=== PATIENT | female | born 1985 | race Caucasian/White ===

== ENCOUNTER 2016-08-03 19:17 | Emergency (ER) | payer MEDICARE, MEDICAID ==
[2016-08-03 21:18] VITALS: BP 110/69
[2016-08-03] MEDS ORDERED: Cephalexin SUSP* 250 MG/5 ML ORAL.SUSP 100 ML BTL PO ONE ×3 (21:47→21:54)
--- NOTE | 2016-08-03 21:54 | UC ---
Skin Complaint HPI - HPI Summary HPI Summary: INFECTED FOLLICLES ON LEFT BUTTOCK FOR DAYS. - History of Current Complaint Chief Complaint: UCSkin Time Seen by Provider: 08/03/16 21:36 Stated Complaint: SKIN COMPLAINT Hx Last Menstrual Period: 07/22/16 Onset/Duration: Lasting Days Location: Other - LEFT BUTTOCK Associated Signs & Symptoms: Positive: Rash. Negative: Fever - Allergy/Home Medications Allergies/Adverse Reactions: Allergies Allergy/AdvReac Type Severity Reaction Status Date / Time No Known Allergies Allergy Verified 08/03/16 21:07 Review of Systems Constitutional: Negative Skin: Rash Psychological: Anxious All Other Systems Reviewed And Are Negative: Yes PMH/Surg Hx/FS Hx/Imm Hx Previously Healthy: Yes - Surgical History Surgical History: None - Family History Known Family History: Positive: Unknown - Social History Alcohol Use: None Substance Use Type: None Smoking Status (MU): Never Smoked Tobacco - Immunization History Most Recent Influenza Vaccination: None Most Recent Tetanus Shot: 10/03/07 Most Recent Pneumonia Vaccination: n/a Physical Exam Triage Information Reviewed: Yes Completion Of Physical Exam Limited Due To: Other - VERY ANXIOUS Appearance: Well-Appearing, No Pain Distress Vital Signs: Initial Vital Signs Temp 98 F 08/03/16 21:08 Pulse 86 08/03/16 21:08 Resp 18 08/03/16 21:08 BP 110/69 08/03/16 21:08 Pulse Ox 100 08/03/16 21:08 Neck: Positive: Supple Skin Exam: Other - LEFT BUTTOCK WITH 2 INFECTED FOLLICLES WITH SURROUNDING 2 CM ERYTHEMA. NO ABSCESS FOR I & D. Course/Dx - Diagnoses Provider Diagnoses: FOLLICULITIS Discharge - Discharge Plan Condition: Stable Disposition: HOME Prescriptions: Cephalexin SUSP* [Keflex SUSP 250 MG/5 ML*] 500 mg PO TID #300 ml Patient Education Materials: Folliculitis (ED) Additional Instructions: FOLLOW UP WITH YOUR DOCTOR. RETURN TO THE EMERGENCY DEPARTMENT FOR ANY WORSENING OF YOUR CONDITION OR QUESTIONS OR CONCERNS.
== END 2016-08-03 22:06 | disposition home or self-care (01) ==
LOC: UCCORT 19:17
DX: L73.9 Follicular disorder, unspecified (principal)
CPT/HCPCS: 99202; A9270-GY; G0463

== ENCOUNTER 2017-02-16 17:00 | Emergency (ER) | payer MEDICARE, MEDICAID ==
[2017-02-16 17:58] VITALS: BP 103/60
--- NOTE | 2017-02-16 19:03 | UC ---
Skin Complaint HPI - HPI Summary HPI Summary: 32 year old female with cat bite earlier today. BITE BY CAT LEFT INDEX FINGER TODAY APPROX NOON. SMALL PINK AREAS NOTED MIDDLE OF FINGER. [ End ] - History of Current Complaint Chief Complaint: UCUpperExtremity Time Seen by Provider: 02/16/17 18:53 Stated Complaint: LEFT FINGER INJ Hx Obtained From: Patient, Family/Maxillofacial Prosthetics Dentist Hx Last Menstrual Period: 02/14/17 Onset/Duration: Sudden Onset Onset Severity: Mild Current Severity: Mild Aggravating Factor(s): Nothing Alleviating Factor(s): Nothing Associated Signs & Symptoms: Positive: Negative - Allergy/Home Medications Allergies/Adverse Reactions: Allergies Allergy/AdvReac Type Severity Reaction Status Date / Time No Known Allergies Allergy Verified 02/16/17 17:57 Home Medications: Home Medications Albuterol HFA INHALER* [Ventolin HFA Inhaler*] 2 puff INH Q4H PRN 02/16/17 [ History Confirmed 02/16/17] Bacitracin OINTMENT* 1 applic TOPICAL BID PRN 02/16/17 [History Confirmed ] Loratadine [Claritin 5 MG/5 ML SYRUP] 10 mg PO DAILY PRN 02/16/17 [History Confirmed 02/16/17] Review of Systems Constitutional: Negative Skin: Negative, Other - cat bite Eyes: Negative ENT: Negative Respiratory: Negative Cardiovascular: Negative Gastrointestinal: Negative Genitourinary: Negative Motor: Negative Neurovascular: Negative Musculoskeletal: Negative Neurological: Negative Psychological: Negative All Other Systems Reviewed And Are Negative: Yes PMH/Surg Hx/FS Hx/Imm Hx Previously Healthy: Yes GI/ History: Gastroesophageal Reflux Psychological History: Other - MR Other Psychological History: MR - Surgical History Surgical History: None - Family History Known Family History: Positive: Unknown - Social History Occupation: Unemployed Lives: [facility] Alcohol Use: None Substance Use Type: None Smoking Status (MU): Never Smoked Tobacco - Immunization History Most Recent Influenza Vaccination: None Most Recent Tetanus Shot: 10/03/07 Most Recent Pneumonia Vaccination: n/a Physical Exam Triage Information Reviewed: Yes Appearance: Well-Appearing, No Pain Distress, Well-Nourished Vital Signs: Initial Vital Signs Temp 98.2 F 02/16/17 17:47 Pulse 68 02/16/17 17:47 Resp 16 10/27/17 17:47 BP 103/60 02/16/17 17:47 Pulse Ox 100 02/16/17 17:47 Vital Signs Reviewed: Yes Musculoskeletal Exam: Normal Neurological Exam: Normal Psychological Exam: Normal Skin: Positive: Other - left index finger with break in skin dorsal aspect of finger. no erythema. no discharge. no pulp tenderness. FROM of skin . cap refill < 3 sec. peripheral pulses intact Course/Dx - Course Course Of Treatment: She declined physical examination except for palpation and inspection of the affected finger - Diagnoses Provider Diagnoses: index finger cat bite left sided Discharge - Discharge Plan Condition: Good Disposition: HOME Prescriptions: Amoxicillin/Clavulanate SUSP* [Augmentin SUSP*] 800 mg PO Q12H #1 btl Patient Education Materials: Animal Bite (ED) Referrals: NERI Quigley [Primary Care Provider] - 4 Days
[2017-02-16] MEDS ORDERED: Amoxicillin/Clavulanate SUSP* BTL PO ONE (19:13)
== END 2017-02-16 19:49 | disposition home or self-care (01) ==
LOC: UCCORT 17:00
DX: S61.251A Open bite of left index finger without damage to nail, initial encounter (principal); W55.01XA Bitten by cat, initial encounter
CPT/HCPCS: 99212; G0463